=== PATIENT | female | born 1995 | race Caucasian/White ===

== ENCOUNTER 2018-04-18 02:59 | Outpatient (CLI) | payer MEDICAID, SELFPAY ==
--- NOTE | 2018-04-18 07:34 | DI.REPORT_ITS ---
SYMPTOM/DIAGNOSIS: DATING, H/O PRIOR FOR MACROSOMIA, UNCERTAIN MENSTRUAL DATING. Z3A.09 OB ULTRASOUND: There is a single intrauterine gestation. Tribbey/rump length measurements correspond to 11 weeks 3 days and an EDC of 04 November 2018 cardiac activity is demonstrated at 169 BPM. There is a rounded area in the posterior myometrium measuring 2.6 3.9 x 4 cm which could represent a fibroid. The ovaries are normal in size and appearance. IMPRESSION: Living intrauterine gestation of 11 weeks 3 days. Posterior 4 cm uterine fibroid. Many abnormalities cannot be diagnosed. A normal exam does not exclude a congenital anomaly. Radiology No. [id number] LMP: 02/03/18 Exam Date : 04/18/19 [facility] wks days on EDC ([facility]) 11/10/18 Confirmed: HISTORY: 1ST TRI ---- PREDICTED GESTATIONAL AGE NUMBER 10 +4 weeks with a range of week to weeks. 1 Determined by___1STUS___LMP___HISTORY Info. pertaining to fetus # PLACENTA PRESENTATION Grade Cephalic___ Anterior___Posterior___ Breech____ Right Left Transverse(head right___ Fundal___Low-lying___Previa___ Transverse(head left___ Varying__X____ BIOMETRY AMNIOTIC FLUID BPD: mm weeks Normal HC: mm weeks AC: mm weeks FL: mm weeks AMNIOTIC FLUID INDEX >26 WK CRL: 46 mm 11 +3 weeks Cisterna Magna: mm CI: RUQ: LUQ Cerebellum: cm EFW: grams Percentile RLQ: LLQ Total: cms Composite AGE= 11 +3 wks EDC by US_ 11/04/18 BIOPHYSICAL PROFILE ANATOMY IDENTIFIED SCORE 0/2 Heart: 4-Chamber___Rate:BPM_ 169____ LVOT: RVOT: Amniotic Fluid(>2cms)____ Stomach: Kidneys: Respirations (>30 secs) Bladder: Post. Fossa: Body Flex/Extension 3 vessel cord: Ventricles: cord insertion: Lips:____ Extremity Flex/Extension spinal morphology: Nose: Total Score= Palate: NS=not seen
== END 2018-04-18 03:00 ==
PROVIDERS: PCP Family Medicine; Visit Provider Nurse Practitioner Women's Health
DX: Z34.91 Encounter for supervision of normal pregnancy, unspecified, first trimester (principal); D25.9 Leiomyoma of uterus, unspecified; O34.211 Maternal care for low transverse scar from previous cesarean delivery
CPT/HCPCS: 76801

== ENCOUNTER 2019-11-23 10:33 | Emergency (ER) | payer MEDICAID, SELFPAY ==
[2019-11-23 10:41] VITALS: BP 160/86; PULSE 116; TEMP 36.6; O2SAT 96
--- NOTE | 2019-11-23 11:00 | DI.RAD_ITS ---
EXAM: XR PORTABLE CHEST AP XR PORTABLE CHEST AP CLINICAL HISTORY: cough/fever. cough/fever TECHNIQUE: 2D digital imaging was performed. COMPARISON: No exams were available for comparison FINDINGS: LUNGS: Clear. No pleural abnormality seen. HEART: Normal. MEDIASTINUM: Normal. OTHER FINDINGS: None. IMPRESSION: No acute pulmonary findings. DATA REPOSITORY: RADIATION DOSE DELIVERED:
--- NOTE | 2019-11-23 11:45 | ED.GENADUL_ITS ---
Discharge Plan Disposition Patient Disposition: HOME Condition: Stable Discharge Details Chief Complaint: RespSymp Clinical Impression: Cough Primary Care Provider: Isamar Foy ED Provider: Angel Botello Home Meds and New Rx's Prescriptions: No Action No Known Home Meds RF: 0 Discharge Instructions Instructions: Acute Cough (ED) Additional Instructions: At this time you have been provided with a medical screening exam here in the ER. Chest x-ray is unremarkable, flu swab not indicated given the duration of your symptoms. No clear indication for antibiotics. At this time you are being released from the ER, I have set up coronavirus testing for you. You will go directly into your car and then get in line outside of the ER entrance for testing with in the tent. Results will likely take close to a week to be resulted. Out of an abundance of precaution taking into account the current level of national concern, your clinical picture, and the CDC recommendations, you will be discharged home however recommendations are made for a 14-day quarantine, good handwashing techniques, the importance of wearing a mask, home monitoring and isolation. Stand Alone Forms: PENDING COVID-19 TESTING Medical Decision Making Patient is a 23-year-old female with history of exercise-induced asthma presents to the ER today with roughly 7 or 8-day history of cough, body aches, subjective fevers. Taking [id number] medication with some relief. Of note her pulse was 116 during triage however during my evaluation she was in the 80s. She appears well, nontoxic. O2 sats are 96% on room air and she is afebrile. She has had no known sick contacts or recent travel however given her symptoms such as cough, fever, and we do know that the coronavirus is now within our community, I do believe testing is prudent. Patient was evaluated in room 7, subsequently moved to room 5. All appropriate PPE followed. Will not obtain flu swab as she is outside the window for Tamiflu treatment. Will obtain 1 view chest x-ray Chest x-ray negative. No indication the patient has pneumonia, no need for antibiotics. There appears to be a new workflow for otherwise healthy people who are being evaluated but subsequently discharged from the ER for possible Covid testing. Patient will be discharged from the ER, will get into her car, and then be tested through our drive up tent testing. I will order the test and filled the appropriate paperwork. This hopefully will keep our use of PPE under better control here in the ER and all testing for patient will not require admission can be performed in 1 central location. At this time your symptoms can be consistent with the coronavirus. CDC does recommend testing. Testing will likely take somewhere between 72 hours and 1 week for results. You will be contacted by hospital staff with your results. If you do not hear from them within this timeframe I recommend contacting the hospital. Out of an abundance of precaution it is highly recommended you self quarantine yourself for a total of 14 days or until symptom free for greater than 48 hours. It would be prudent to wear a mask at all times, always wash hands thoroughly, and follow-up closely with the primary care provider. It is recommended that you contact the primary care provider over the phone to discuss reassessment options. At this time there is no clear indication for admission. It is very important to monitor your symptoms closely, and if you notice any worsening, new, evolving symptoms I recommend calling the ER before returning. Imaging Data Radiologic Study: Attestation: I personally reviewed and interpreted this imaging study as follows: Imaging: X-Ray My impression: Chest x-ray negative as read by me HPI General Mode of arrival: ambulatory . Date/Time Provider Initiated Documentation: 11/23/19 10:45 . Limitations to Documentation: no limitations . Information obtained by: patient . HPI Narrative: This is a 23-year-old female with a history of exercise-induced asthma presenting to the ER with 7-day history of cough, dry, chest pain with deep inspiration or coughing, body aches, stuffy nose. She initially denied fever but then later reports that she subjectively has felt feverish over the past several days and an oral thermometer at home but as high as 100.0. She has taken [id number] medications with mild relief of her symptoms. She does report a mild headache. Denies ear pain. Later tells me that she is also had a scratchy throat. She has had no recent travel or known sick contacts. Denies any pain or swelling in her legs. Denies history of DVT or PE. Patient reports that she has 2 small children at home and she is concerned that she could be contagious. She has not contacted her primary care provider during her illness. Related Data Home Medications Medication Instructions Recorded Confirmed Unknown [No Known Home Meds] 11/23/19 11/23/19 Allergies Allergy/AdvReac Type Severity Reaction Status Date / Time No Known Allergies Allergy Unverified 08/11/16 15:27 General Stated Complaint: RespSymp POORNIMA: 3 Review of Systems Constitutional Constitutional: Denies chills, Denies fatigue, Reports fever(s) and Reports headache(s) Eyes Eyes: Denies eye discharge ENT Ears, Nose, Mouth, and Throat: Denies otalgia, Reports headache(s), Reports nasal discharge and Reports sore throat Cardiovascular Cardiovascular: Reports chest pain (Only with deep inspiration or coughing) and Denies dyspnea Respiratory Respiratory: Reports cough, Reports pain with cough and Denies dyspnea Gastrointestinal Gastrointestinal: Denies abdominal pain, Denies nausea and Denies vomiting Genitourinary Genitourinary: Denies dysuria Musculoskeletal Musculoskeletal: Reports myalgias Integumentary/Breasts Skin/Breast: Denies rash Neurologic Neurologic: Reports headache(s) Endocrine Endocrine: Denies fatigue PFSH Surgical History Cholecystectomy Tonsillectomy and adenoidectomy Family History Father Depression Social History Smoking/Tobacco Use Status: Never Drug use: Never Do you feel safe at home: Yes Do you feel safe in your relationship?: Yes Exam Const General: cooperative, healthy appearing, comfortable and no acute distress Orientation: alert, awake and oriented x3 HENMT Head: normal to inspection, normocephalic and atraumatic Ears: external ears normal, TM's normal bilaterally and EAC's normal General nose exam: nasal discharge clear Mouth: moist mucous membranes Throat: posterior oropharynx normal Eyes Conjunctivae: conjunctivae normal Neck Neck: normal visual inspection, full ROM, no lymphadenopathy, no meningeal signs, trachea midline and supple Resp Effort & Inspection: normal respiratory effort, able to speak in complete sentences and cough Quality of cough: dry Auscultation: clear to auscultation bilaterally Cardio Rate: regular rate (86) Rhythm: regular rhythm GI Palpation: soft and nontender Skin General skin exam: no rashes or lesions noted Neuro General: patient alert, patient awake, moves all extremities and no focal motor deficits Sensory Exam: no sensory deficits noted Psych Appearance: grossly normal Mental Status: mental status grossly normal Course Vital Signs Vital signs: Vital Signs Temperature 36.6 C 11/23/19 10:41 Pulse 116 H 11/23/19 10:41 Blood Pressure 160/86 H 11/23/19 10:41 Pulse Oximetry 96 11/23/19 10:41 Temperature 36.6 C 11/23/19 10:41 Temperature Source Temporal Artery Scan 11/23/19 10:41 Pulse 116 H 11/23/19 10:41 Respiratory Effort 11/23/19 11:30 Respiratory Depth Normal 11/23/19 11:30 Blood Pressure 160/86 H 11/23/19 10:41 Blood Pressure Position Sitting 11/23/19 10:41 Pulse Oximetry 96 11/23/19 10:41 Oxygen Delivery Method Room Air 11/23/19 10:41 Oxygen Flow Rate 0 11/23/19 10:41
== END 2019-11-23 12:37 | disposition home or self-care (01) ==
LOC: ER 12:31
PROVIDERS: Emergency Provider Physician Assistant; PCP Family Medicine
DX: M79.10 Myalgia, unspecified site (principal); R05 Cough
CPT/HCPCS: 99283; U0003; 71045

== ENCOUNTER 2019-11-23 11:42 | Outpatient (CLI) | payer MEDICAID, SELFPAY ==
[2019-11-25 16:59] LABS: SARS-CoV-2 RNA Undetected (Undetected); SARS-CoV-2 Specimen Source Nasopharynx
== END 2019-11-23 12:02 ==
PROVIDERS: PCP Family Medicine; Visit Provider Physician Assistant
DX: Z20.828 Contact with and (suspected) exposure to other viral communicable diseases (principal)
CPT/HCPCS: U0003